=== PATIENT | male | born 1955 | race Caucasian/White ===

== ENCOUNTER 2020-11-21 06:03 | Inpatient (IN) ==
[2020-11-21] MEDS ORDERED: Ondansetron 4 MG/2 ML VIAL ONE (06:55)
[2020-11-21] MEDS ORDERED: *HR* Rocuronium Bromide 50 MG/5 ML VIAL ONE ×2 (06:55→09:31)
[2020-11-21] MEDS ORDERED: Lidocaine -MPF 2% 2 ML VIAL ONE (06:55)
[2020-11-21] MEDS ORDERED: *HR* FentaNYL (PF) 100 MCG/2 ML VIAL ONE (06:56)
[2020-11-21] MEDS ORDERED: *HR* Propofol 200 MG/20 ML VIAL IVP ONE (06:56)
[2020-11-21] MEDS ORDERED: Famotidine 20 MG/2 ML VIAL IVP ONE (07:00)
[2020-11-21] MEDS ORDERED: Acetaminophen IV 1,000 MG/100 ML BAG IVPB ONE (07:00)
[2020-11-21] MEDS ORDERED: Ondansetron 4 MG/2 ML VIAL IVP PRN ×2 (07:04→12:39)
[2020-11-21] MEDS ORDERED: *HR* HYDROmorphone PF 0.5 MG/0.5 ML SYRINGE IVP PRN (07:04)
[2020-11-21] MEDS ORDERED: *HR* Heparin 5,000 UNIT/ML VIAL ONE (07:25)
[2020-11-21] MEDS ORDERED: Ringers Solution, Lactated 1,000 ML IVC SCH (07:30)
[2020-11-21] MEDS ORDERED: CeFAZolin Syr 2,000MG/20 ML 2,000 MG/20 ML SYRINGE IVPB ONE (07:32)
[2020-11-21] MEDS ORDERED: Heparin 1,000 UNITS/500 mL 2,000 ML ONE (07:33)
[2020-11-21] MEDS ORDERED: Isovue-300 50ML VIAL ONE (07:34)
[2020-11-21] MEDS ORDERED: ceFAZolin 1,000 MG, Sodium Chloride IRRigation 1,000 ML IR ONE (07:45)
[2020-11-21] MEDS ORDERED: EPHEDrine 50 MG/ML VIAL ONE (08:35)
[2020-11-21] MEDS ORDERED: Sugammadex Sodium 200 MG/2 ML VIAL IV ONE (10:06)
[2020-11-21] MEDS ORDERED: *HR* HYDROMORPHONE 2 MG/ML VIAL ONE (11:02)
[2020-11-21] MEDS ORDERED: Acetaminophen 325 MG TABLET PO PRN (12:39)
[2020-11-21] MEDS ORDERED: *HR* Labetalol 20 MG/4 ML SYRINGE IVP PRN (12:39)
[2020-11-21] MEDS ORDERED: Naloxone 0.4 MG/ML INJ IVP PRN (12:39)
[2020-11-21] MEDS ORDERED: *HR* HYDROcodone/Acet 5/325 mg TABLET PO PRN (12:39)
[2020-11-21] MEDS ORDERED: *HR* OxyCODONE Immed Rel 5 MG TABLET PO PRN (12:39)
[2020-11-21] MEDS: ceFAZolin 2,000 MG in 0.9 % Sodium Chloride 100 ML IVPB SCH ×2 (15:49→23:03)
[2020-11-22 05:03] LABS: BUN/Creatinine Ratio 11 (6-26); Blood Urea Nitrogen 8 mg/dL (8-23); Calcium 8.4 mg/dL (8.6-10.3); Carbon Dioxide 26 mEq/L (23-29); Chloride 105 mEq/L (98-107); Glucose 155 mg/dL (70-105); Osmolality,Calculated 283 (280-300); Sodium 136 mEq/L (136-145); eGFR For African Americans > 60 (> 60); eGFR For Non-African Americans > 60 (> 60)
[2020-11-22 07:04] VITALS: BP 121/81; TEMP 98.6; O2SAT 97
[2020-11-22] MEDS: ceFAZolin 2,000 MG in 0.9 % Sodium Chloride 100 ML IVPB SCH (08:02)
[2020-11-22 08:19] VITALS: PULSE 88
[2020-11-22] MEDS ORDERED: amLODIPine 5 MG TABLET PO SCH (09:00)
[2020-11-22] MEDS ORDERED: Aspirin Enteric Coated 81 MG Tablet PO SCH (09:00)
[2020-11-22] MEDS ORDERED: Cholecalciferol (D-3) 1,000 UNIT (25MCG) TABLET PO SCH (09:00)
[2020-11-22] MEDS ORDERED: Metoprolol XL (24 HR) Succ 25 MG TAB.ER.24H PO SCH (09:00)
[2020-11-22] MEDS ORDERED: Loratadine/Pseudophed (12 HR) 1 EACH TABLET PO SCH (09:00)
[2020-11-22 09:31] LABS: Basophils # 0.1 K/mcL (0.0-0.2); Basophils % 0.3 %; Hematocrit 42.3 % (37.5-50.1); Immature Granulocytes % 0.5 % (0-4); Lymphocytes # 1.2 K/mcL (0.6-4.6); Mean Corpuscular HGB Conc 32.9 g/dL (31.6-35.5); Mean Corpuscular Hemoglobin 30.5 pg (28.0-33.3); Mean Corpuscular Volume 92.8 fL (83.0-100.0); Mean Platelet Volume 13.3 fL (9.4-12.4); Monocytes # 1.2 K/mcL (0.0-1.3); Monocytes % 7.7 %; Neutrophils # 12.9 K/mcL (1.6-8.9); Platelet Count 115 K/mcL (140-400); Red Blood Count 4.56 M/mcL (4.19-5.50); Red Cell Distribution Width 13.2 % (11.5-14.5); Segmented Neutrophils % 83.5 %
[2020-11-22 09:46] LABS: Hemoglobin 13.9 g/dL (12.9-16.9); White Blood Count 15.4 K/mcL (4.3-11.1)
== END 2020-11-22 11:05 | disposition home or self-care (01) | DRG 269 ==
LOC: SAMDAY 06:03 → 2NNU 12:26
PROVIDERS: ADMIT Surgery Vascular Surgery; ATTEND Surgery Vascular Surgery